=== PATIENT | male | born 1970 | race Caucasian/White ===

== ENCOUNTER → 2022-02-24 | Day surgery (SDC) | payer OTHER ==
[~2022-02-24] VITALS: Ht 177.8 cm; Wt 106.6 kg
[~2022-02-24] MED LIST: ALFUZOSIN HCL E10 MG PO; ASPIRIN EC81 MG PO; ATORVASTATIN CA10 MG PO; COZAAR100 MG PO; HCTZ25 MG PO; LEVOCETIRIZINE D5 MG PO; METOPROLOL SUCC25 MG PO; PANTOPRAZOLE SO40 MG PO
[2022-02-24 08:14] LABS: HCT 48.5 % (42.0-52.0); HGB 17.3 g/dl (13.2-18.0); MCH 32.3 pg (25.0-31.0); MCHC 35.7 g/dL (32.0-36.0); MCV 90.7 fL (78.0-100.0); MPV 9.6 fL (6.0-9.5); RBC 5.35 M/uL (4.70-6.00); RDW 12.1 % (11.5-14.0); WBC 7.8 K/uL (4.0-10.5)
[2022-02-24 08:31] LABS: ALBUMIN 3.9 g/dL (3.4-5.0); BUN/CREAT RATIO (CALC) 12.7 RATIO; CREATININE 1.02 mg/dL (0.67-1.17); GLOBULIN (CALCULATION) 3.9 g/dL; POTASSIUM 3.7 mmol/L (3.5-5.1); TOTAL PROTEIN 7.8 g/dL (6.4-8.2)
== END | disposition home or self-care (01) ==
LOC: FAS 07:34
PROVIDERS: Surgery
DX: Z12.11 Encounter for screening for malignant neoplasm of colon (principal); K63.5 Polyp of colon; E78.5 Hyperlipidemia, unspecified; I10 Essential (primary) hypertension; K21.9 Gastro-esophageal reflux disease without esophagitis; G47.33 Obstructive sleep apnea (adult) (pediatric)
CPT/HCPCS: 36415; 80053; J2250; J2704; J7120